=== PATIENT | male | born 1955 | race Caucasian/White ===

== ENCOUNTER 2020-10-30 14:50 | Inpatient (IN) | payer OTHER, MEDICAID ==
[~2020-10-30] VITALS: Ht 175.3 cm; Wt 93.4 kg
--- NOTE | 2020-10-31 04:16 | NUR ---
Assumed care of patient this pm shift. Patient came from home and was seen in the emergency room. Patient arrived in a wheel chair. Patient is hyperverbal and very manic upon arrival. Patient has a flight of ideas. Patient refused to sign consents so consent was obtained from the (KATE). Patient is very delusional and speaks alot about voice doubling mechanisms and the chantell. Patients vital signs are stable. No signs of acute distress. Patient also appears to have difficulty sleeping. Patient is alert and oriented to self. Patient is ambulatory and has a steady gait. We will continue to monitor per hospital policy.
[2020-10-31 07:00] VITALS: BP 119/78
[2020-10-31 11:38] VITALS: BP 119/78
[2020-10-31 12:55] LABS: HEMATOCRIT 42.9 % (42.0-52.0); HEMOGLOBIN 14.3 gm/dL (14.0-18.0); MCH 30.6 pg (26.0-34.0); MCHC 33.5 g/dL (28.0-37.0); MCV 91.4 fL (80.0-100.0); RBC 4.69 mil/uL (4.50-6.00); RDW 14.2 % (10.5-14.5); WBC 8.8 thou/uL (4.0-11.0)
[2020-10-31 13:06] LABS: CREATININE 0.7 mg/dL (0.7-1.3); MAGNESIUM 1.8 mg/dL (1.8-2.4); POTASSIUM 3.9 mmol/L (3.5-5.1)
[2020-10-31 13:07] LABS: CALCIUM 9.8 mg/dL (8.5-10.1)
--- NOTE | 2020-10-31 14:03 | NUR ---
1400 RESUMMED CARE THIS AM FROM OVERNIGHT SHIFT, PATIENT IN DAY ROOM TALKING LOUDLY VERY MANIC. PATIENT HAD TO GET GEODON 10 MG TO HELP PATIENT CALM DONE. PATIENT THEN ATE BREAKFAST TOOK MEDICATION WITHOUT INCIDENCE, PATIENT ORIENTED TIMES 4. PATIENT QUIETED DOWN AFTER IM PATIENT DENIES SI/HI/AH/VH AT PRESENT. PATIENTS ABDOMEN FIRM ROUND BOWEL SOUNDS PRESENT LUNGS CLEAR; PATIENT IS VERY INTELLIGENT GRADUATED [employer] FROM [employer]. PATIENT IS VERY GRANDIOUS AND HAS FLIGHT OF IDEAS AND JUMPS FROM ONE THOUGHT TO ANOTHER. 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 PATIENT IS MUCH CALMER THIS AFTERNOON WILL CONTINUE TO MONITOR FOR SAFETY AND BEHAVIORS.
--- NOTE | 2020-10-31 14:38 | NUR ---
SW attempted to complete assessment with the Pt. Pt was was unable to complete due to paranoia and good. Pt stated that this SW was from the government and felt threatened when SW inquired if Pt used a walker or cane to ambulate. SW attempted to contact the Pt's Esha Bloom, . Sw unable to reach Esha but left a message requesting for a call back and a copy of the DPOA paperwork to be faxed or emailed. VITALIY will continue to follow up
[2020-10-31 20:12] VITALS: BP 140/80
--- NOTE | 2020-10-31 23:55 | NUR ---
10-31-20 CARE TRANSFERRED 1899. PT AAOX4, VSS, RR EVEN AND NONLABORED ON RA, BLD GLUCOSE 159. PT DENIES SI/HI AND PAIN. PT PRESENTS IRRITABLE ABOUT BEING HERE ON A LOCK DOWN UNIT, BUT HAS REMAINED COOPERATIVE. PT HAS GRANDIOUS OF SELF WITH FLIGHT OF IDEAS, MOVING FROM ONE SUBJECT TO ANOTHER QUICKLY. DURING MEDICATION ADMIN PT HAD NO DIFFICULTIES. ZERO S/S OF ACUTE DISTRESS, PT WILL CONTIUE TO BE MONITOR PER [facility] PROTOCOL.
[2020-11-01 11:17] VITALS: BP 127/76
--- NOTE | 2020-11-01 11:42 | NUR ---
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 DID TAKE AM MEDICATIONS. GAIT STEADY WITHOUT ASSISTIVE DEVICES-NOTED TO HAVE MULTIPLE SUGAR PACKETS,CUPS,AND OTHER CONDIMENTS IN ROOM-APPEARS UNKEMPT-CLOTHING SOILED AND PANTS FALLING DOWN-WHEN DIRECTED TO SHOWER OR COMPLETE ADLS AND ASSISTANCE OFFERED REFUSED. APPETITE GOOD. PHYSICAL ASSESSMENT UNREMARKABLE.
[2020-11-01 19:55] VITALS: BP 145/97
--- NOTE | 2020-11-02 02:56 | NUR ---
11-01-20 CARE TRANSFERRED 1899 OBSERVED PT UP WALKING AND TALKING LOUDLY IN DAY ROOM.0 PT AAOX4, VSS, RR EVEN AND NONLABORED ON RA. PT PRESENTS MANIC HYPERVERBAL BUT EASILY REDIRECTED AND HAS BEEN COOPERATIVE THROUGHOUT NURSING ASSESSMENT. DURING MEDICATION ADMIN PT HAD NO DIFFICULTIES. PT WAS TALKING TO AND PT REQUESTED A CONSENT FOR TREATMENT, PT SIGNED CONSENT. LATER PT MANIC WAS MANAGED WITH PRN MEDICATION. ZERO S/S OF ACUTE DISTRESS NOTED, PT WILL CONTINUE TO BE MONITOR PER [facility] PROTOCOL.
[2020-11-02 07:47] VITALS: BP 156/79
[2020-11-02 10:14] VITALS: BP 156/79
[2020-11-02 10:26] VITALS: BP 156/79
--- NOTE | 2020-11-02 12:00 | NUR ---
1200 RESUMMED CARE FROM OVERNIGHT SHIFT THIS AM, PATIENT IN ROOM ASLEEP ROOM A MESS. SHEETS WERE OFF THE BED BED TURNED SIDE WAYS PAPER ALL OVER THE FLOOR. WE TOOK TISSUE BOXES AND EXTRA HYGIENE THINGS TAKEN OUT OF ROOM, PATIENT POURED COFFEE ON MATTRESS. PATIENT ORIENTED TIMES 3 DENIES SI/HI/AH/VH AT PRESENT. PATIENTS ABDOMEN FIRM ROUND BOWEL SOUNDS PRESENT LUNGS PRESENT. PATIENT IN DAYROOM EATING BREAKFAST TOOK MEDICATION WITHOUT INCIDENCE. PATIENT STARTED DISPLAYING MANIC BEHAVIORS TALKING LOUD WALKING IN AND OUT OF ROOM NOT BEING FULLY CLOTHED. PATIENT WAS GIVEN GEODON 10MG IM TO HELP MANIC BEHAVIORS. PATIENT IS DELUSIONAL AND HAS DISORGANIZED THOUGHTS WILL CONTINUE TO MONITOR PATIENT FOR BEHAVIORS AND SAFETY.
--- NOTE | 2020-11-02 13:33 | NUR ---
VITALIY and Dr. Garcia spoke with Esha who gave some hx about why pt was brought to hospital. Esha said that pt was dx with bipolar disorder at age of 20. She said several of pt's family members have been dx with COVID. She said he also has been stressed out about his upcoming court date in 02/2021. 3 years ago pt was out of control so pt's asked for the court to get involved. Pt destroyed property at the courtdebord and has therefore been working with the court system for 3 years. This was during a time she had to have brain surgery. VITALIY reviewed pt's paper chart and saw there was no DPOA. VITALIY relayed this to Esha who said that she signed one for pt many years ago. She became very emotional and began crying when she thought the hospital was going to release pt because of the DPOA doc. VITALIY and Dr. Garcia tried to explain that pt was too psychotic for this to be a safe discharge. VITALIY was unable to obtain much info for psychosocial; Esha was too emotional. VITALIY team will continue to follow pt during her stay on this unit.
[2020-11-02 19:39] VITALS: BP 135/76
--- NOTE | 2020-11-03 04:17 | NUR ---
11-02-20 CARE TRANSFERRED 1899 OBSERVED PT PACING IN HALLWAY. PT AAOX4, VSS, RR EVEN AND NONLABORED ON RA, PT PRESENTS IN MANIC STATE WITH FLIGHT OF IDEAS. HCP CONSULTED AND PRN MEDICATION ADMIN THEN NOTED PT CALMED DOWN FOR APPROXIMATELY ONE HOUR. ZERO S/S OF ACUTE DISTRESS, PT WILL CONTINUE TO BE MONITOR.
--- NOTE | 2020-11-03 09:14 | NUR ---
Care assumed of patient at 0715: Patient seated in dayroom at dining table at start of shift. Patient hyperverbal, pressured speech, disorganized thoughts. Alert and oriented x4. Paranoid regarding medications, discussing [place] batteries while taking [place] medication. Patient hid all pills under tongue and refused to swallow medications. Required multiple re-directions to swallow prescribed medications. Ate 100% breakfast. During rounds, patient had pushed underwear and several different linens into toilet, overflowing toilet. Blankets, sheets, towels pushed into sinks, bins and trash bags, all dripping wet. Denies pain and discomfort. Patient screaming in dayroom and was asked to sit in his room until he felt he could be more appropriate for mileau. Patient complied. Currently seated in room.
[2020-11-03 09:15] VITALS: BP 110/67
[2020-11-03 20:16] VITALS: BP 147/72
--- NOTE | 2020-11-04 04:11 | NUR ---
ASSUMED PT'S CARE THIS PM SHIFT. PT ALERT AND ORIENTED. WAS CALM AND COOPERATIVE WITH ASSESSMENT. PT CAME MANIC AND HYPERVERBAL AT ABOUT 2130. PT WAS ALSO DELUSIONAL. KEPT TALKING ABOUT CALLING HIS SHUTDOWN COORDINATOR THAT LATE AT NIGHT. PT INFORMED THAT IT WAS ALREAYD PAST TIME FOR PHONE CALLS. PT HAD FLIGHT OF IDEAS. KEPT TALKING ABOUT DIFFERENT THINGS THAT DID NOT MAKE SENSE. PT GIVEN 5M IM ZYPREXA. PT SLEPT AFTERWARDS. PT NOW AWAKE ACTING SAME WAY. HYPERVERBAL, DELUISONS. PT BROUGHT OUT HIS TABLE WITH PAPERS AND CUPS ,VOICED HE'S SETTING UP A BARGAIN IN THE DAYROOM. PT ASKED TO TAKE HIS TABLE BACK TO HIS ROOM AND TRY AND GET SOME SLEEP. PT TOOK TABLE BACK, BUT CAME BACK OUT, RAMBLING AND TALKING LOUD. ANOTHER ZYPREXA 5M IM GIVEN. PT STILL HYPERVERBAL, SITTING IN THE DAYROOM. PT WAS COOPERATIVE WITH MEDS. NO RESISTANCE TO CARE NOTED. WILL CONTINUE TO MONITOR.
--- NOTE | 2020-11-04 08:14 | NUR ---
Patient observed invading personal space of other patients during breakfast this morning- moving their breakfast trays to different tables, eating off of their plates, and using his hands to feed them as well. Patient was walked to his room where he was found to have a small pile of papers and toilet paper roll that was removed from his room.
[2020-11-04 09:17] VITALS: BP 117/75
--- NOTE | 2020-11-04 10:23 | NUR ---
PATIENT HAS BEEN UP, AND OUT ON THE UNIT, WANDERING, IMPULSIVE, LOUD, ATTEMPTING TO FEED PEERS THEIR BREAKFAST THIS MORNING, PATIENT REDIRECTED. HE VERBALLY AGGRESSIVE, THREATENING STAFF. PATIENT ESCORTED BACK TO ROOM BY STAFF, AFTER A WHILE, HE CALMED DOWN, AND CAME BACK OUT TO EAT HIS BREAKFAST. PATIENT TOOK ALL MORNING MEDICATION WHOLE WITHOUT DIFFICULTY. APPETITE IS GOOD, CONSUMED 75% BREAKFAST. PATIENT IS UNABLE TO PARTICIPATE IN GROUP THERAPY DUE TO LACK OF FOCUS, AND IMPULSIVE BEHAVIOR. NO AGGRESSIVE BEHAVIOUR AT THIS TIME. PATIENT'S CALLED AND STATES SHE USUALLY "CALM HIM DOWN BY TALKING TO HIM ON THE PHONE" PATIENT CURRENTLY TALKING TO HIS ON THE PHONE. NO SIGN OF ACUTE DISTRESS NOTED AT THIS TIME, WILL CONTINUE TO REDIRECT, AND MONITOR FOR SAFETY.
[2020-11-04 19:46] VITALS: BP 144/52
[2020-11-04 20:00] VITALS: BP 144/52
--- NOTE | 2020-11-05 04:41 | NUR ---
PATIENT WAS CALM THIS EVENING AND SAT IN DINING ROOM. HE SLEPT IN CHAIR IN DINING ROOM TONIGHT. HE AWOKE AROUND 0430 AND WAS TALKING ALOT AND WANDERING. EARLIER IN THE EVENING HE GOT AHOLD OF A PHONE AND STUCK IT DOWN HIS PANTS. PATIENT HAS BEEN LOCKED OUT OF ROOM MOST OF EVENING D/T HE PUTS SHEETS AND THINGS DOWN THE TOILET AND STOPS IT UP. NONE IN TOILET SO FAR TONIGHT. PATIENT DENIES PAIN AT THIS TIME. HE IS A/0X3 AND DELUSIONAL. HIS VSS. CONSTANT MONITORING TO ASSESS WHERE HE IS AT AND IF HE IS SAFE. PT SITTING IN CHAIR IN DINING ROOM QUIETLY AT THIS TIME. CONTINUE TO MONITOR. BECOMING LESS MANIC AND TAKING MEDS WITHOUT ISSUE.
[2020-11-05 09:13] VITALS: BP 122/74
--- NOTE | 2020-11-05 10:18 | NUR ---
VITALIY contacted pt's Esha to provide an update. No answer. VITALIY left [facility] [place].
--- NOTE | 2020-11-05 11:43 | NUR ---
RT Progress Note- Valeriano has been active in the milieu since admission. He however has been unable to participate in many recreation therapy groups d/t his manic and disruptive behaviors. Behaviors include talking over patients and human resources leader, walking in and out of group, over exaggerated body movements, drawing attention to himself. He is escorted to his room when he does this. He is provided only limited activity supplies because he has been stuffing the toilet with items this week. THROUGH OPERATOR will continue to encourage appropriate behavior in the milieu and in groups.
--- NOTE | 2020-11-05 15:09 | NUR ---
Alert and orientated X4. Becomes irritated and defensive when corrected. Calm for most of day but talks incessantly with alot of delusional speech. Denies SI/HI. Was cooperative with meds but then took out of mouth and needed encouragement to put them back in his mouth. Occassionally inappropriate approaching peers and staff with little response at attempts to redirect. Breath sounds clear. Reg HR auscultated. Color pink with brisk capillary refill and palpable peripheral pulses. Voiding independently, yellow urine per toilet. Active bowel sounds over soft, rounded abdomen. Ambulating with regular, steady gait. Participating in groups. Spoke with on phone this AM.
--- NOTE | 2020-11-05 15:58 | NUR ---
D/t patients ability to maintain appropriate behavior during recreation therapy group, patient was granted his request to use colored pencils to finish his worksheet in the day room. OVEN DAUBER later reported that patient had drawn a picture on the wall in his room. Upon MATCHER OPERATOR entering room, patient was seated on floor with no pants or briefs on. It was observed that he had drawn a large picture on his wall and wrote, "[place]." Patient was told that MATCHER OPERATOR would return with supplies for patient to wash the drawing off of the wall. When MATCHER OPERATOR returned, patient was using a soiled (BM) brief to wipe the drawing.
[2020-11-05 20:00] VITALS: BP 120/74
[2020-11-05 20:45] VITALS: BP 120/74
--- NOTE | 2020-11-06 03:00 | NUR ---
PATIENT HAS BEEN IN DINING ROOM MOST OF NIGHT. HE WAS LOCKED OUT OF ROOM AFTER TURNING ON HIS SHOWER IN HIS ROOM AND LETTING IT RUN. PATIENT HAS BEEN CALM TONIGHT BUT STILL HYPERVERBAL AT TIMES. HE TOOK HIS MEDS WITHOUT ISSUE. PATIENT AT 0245 LEFT DINING ROOM AND WENT AND URINATED IN THE HALLWAY OUTSIDE HIS ROOM. HE CAME TO NURSES STATION AND SAID HE NEEDED TO CLEAN UP SOME MILK AND CORNFLAKES IN THE HALLWAY. WHEN I ASKED HIM IF HE PEED IN THE HALLWAY HE JUST SHRUGGED HIS SHOULDERS. I TOLD HIM TO I COULD TELL IT WAS PEE AND HIS PANTS WERE WET TOO. HE GAVE SOME RESISTANCE TO GETTING CLEANED UP AND JUST WANTED TO WEAR HIS WET PANTS STATING THAT THEY WOULD DRY. PATIENT WAS CLEANED UP AND IS SLEEPING IN HIS BED . FREQUENT CHECKS ON HIS STATUS. IT WAS TOLD IN REPORT TODAY THAT THE DAY NURSE FOUND HIM USING COLORED PENCILS ON HIS WALL AND THEN SMEARING THE PICTURE WITH HIS FECES. PATIENT BEHAVIORS ARE THAT OF CHILD AGE. DIRECTIONS HAVE TO BE SHORT SIMPLE AND EXACT. PT DENIES PAIN,SI/HI/AVH. HE DID SPEAK WITH HIS BY PHONE EARLIER IN THE EVENING. HE DID NOT SHOW ANY BEHAVIORS WHILE OR AFTER HE SPOKE WITH UNTIL NOW. BED IN LOW POSITION. CONTINUING TO MONITOR.
[2020-11-06 08:00] VITALS: BP 144/80
[2020-11-06 09:59] VITALS: BP 144/80
--- NOTE | 2020-11-06 12:34 | NUR ---
Assess for length of stay. Admit to [facility] for bipolar with good. Hx diabetes. BG well controlled. Receives carb control diet and eating 100% of majority of meals. BMI 30, obesity, otherwise consider low nutrition risk
--- NOTE | 2020-11-06 13:22 | NUR ---
ASSUMED PATIENT CARE AT 0700, PATIENT WAS SITTING IN THE DAY ROOM. PATIENT WAS CAUGHT URINATING ON THE FLOOR IN FRONT OF HIS ROOM. PATIENT WAS UNCOOPERATIVE WITH HIS MORNING MEDICATION. FIRST HE TRIED TO HIDE HIS MEDICATION ON HIS PANTS, AFTER HE WAS ASKED NOT TO HIDE HIS MEDICATION IN HIS PANT, PATIENT THEN THREW HIS MEDICATION ON THE FLOOR. PATIENT PICKED UP HIS MEDICATION FROM THE FLOOR AND SWALLOWED THEM. PATIENT VITAL SIGNS ARE STABLE, HE WAS ALERT AND ORIENTED X4. PATIENT WAS IN THE DAY ROOM MOST OF THE DAY. PATIENT WAS CALM AND COOPERATIVE DURING MEALS AND HE ATE 100% OF BREAKFAST AND LUNCH. HIS BLOOD SUGAR WAS 143 FOR BREAKFAST AND 111 FOR LUNCH.
--- NOTE | 2020-11-06 15:50 | NUR ---
PT ALARM ABOVE DOOR ALARMING. PT FLOOR WET AND HIS PANTS WET. PT URINATED ON FLOOR AND TRACKED INTO ROOM.
--- NOTE | 2020-11-06 16:45 | NUR ---
PT TOOK MATTRESS OFF BED AND LAYING ON IT. HE WANTED THE NURSE TO CALL THE SECURITY AND HELP PUT HIS BED BACK ON THE BED. PT TALKING TO THIS VP REVENUE CYCLE ABOUT INDIANS AND ABOUT HIM BEING BLOOD FRIENDS AND HOLDING HIM DOWN AND CUT HIS LEFT FA, THERE IS A SCAR TO LEFT FA. TOLD PT TO COME OUT FOR DINNER, HE SAID NO.
--- NOTE | 2020-11-06 18:38 | NUR ---
DR. THOMASON STARTED NEW MED ZYPREXIA AND TO START WITH DINNER. HE HEARD NURSE TALKING ABOUT IT AND SAID THAT THAT GOES INTO YOUR CELLS AND DRAWS YOUR WATER OUT. HE ALSO HAS HIS LETTUCE IN A CUP OF WATER TO HELP. HE ALSO SPIT IN HIS JELLO CUP WITH JELLO AND MIXED TOGETHER AND ATE IT. HE SAID DOESN'T IT LOOK LIKE KNEE JOINT LIQUID. ZYPREXIA WAS PUT IN ICE CREAM CRUSHED, PT TOOK ICE CREAM WITH MIKO CRACKERS.
[2020-11-06 20:29] VITALS: BP 142/87
--- NOTE | 2020-11-07 02:28 | NUR ---
Assumed care of patient this pm shift. Vital signs stable. Patient cooperative and mostly redirectable. Affect blunted. Alert and oriented to self and situation. Takes medications whole with thin fluids. Patient is hyperverbal. Patient is delusional and seems to gravitate towards water in his rituals. Floor was covered in water this evening. Patient moved his bed to the floor. Assessment shows no signs of acute distress. Melyssa is present. We will continue to monitor per hospital policy.
[2020-11-07 05:29] LABS: HEMATOCRIT 44.9 % (42.0-52.0); HEMOGLOBIN 14.7 gm/dL (14.0-18.0); MCH 30.1 pg (26.0-34.0); MCHC 32.8 g/dL (28.0-37.0); MCV 91.7 fL (80.0-100.0); RBC 4.89 mil/uL (4.50-6.00); WBC 8.4 thou/uL (4.0-11.0)
[2020-11-07 05:49] LABS: CALCIUM 10.1 mg/dL (8.5-10.1); CREATININE 0.7 mg/dL (0.7-1.3); POTASSIUM 3.9 mmol/L (3.5-5.1); TOTAL BILIRUBIN 0.5 mg/dL (0.2-1.0); TOTAL PROTEIN 7.7 g/dL (6.4-8.2)
[2020-11-07 07:30] VITALS: BP 115/74
--- NOTE | 2020-11-07 07:56 | NUR ---
PT TALKING LOUDLY AND MAKING OTHER PATIENTS IN MILEU UPSET. PT TALKING ABOUT GUNS AND MAKING GUN SOUNDS. PT SEEMS WORSE IN BEHAVIOR. GAVE OLAZIPINE 10MG PO CRUSED MED AND PUT IN ORANGE JUICE. PT DRANK 100% OF OJ.
[2020-11-07 08:16] VITALS: BP 115/74
--- NOTE | 2020-11-07 08:17 | NUR ---
When SW came onto unit she could hear pt yelling and talking very loud. SW went to the front of the unit and observed pt rocking in his seat, and jumping up and sitting down several times while yelling; he appeared to be very maniac and hyperverbal. SW talked with his nursing staff about his behaviors and was told last night he took a wheel off a cart and put it in his pocket. SW observed pt get into another pt's space who was sitting in a mary chair; he appeared to be talking to the pt but also picking his sock off the floor. SW asked pt to sit down several times; he complied. SW reminded nursing staff that in meeting it was discussed if pt was doing unsafe behaviors he could have a prn shot. Nursing staff and VITALIY came up with a plan to administer his psych meds that dissolve to him; the plan is to dissolve it in ice cream since he appears to take meds better that way. It was reported to SW that nursing was able to administer meds in his orange juice. SW team will continue to follow pt during his stay on this unit.
--- NOTE | 2020-11-07 09:25 | NUR ---
GAVE PT MEDS THIS AM. PT TOOK MEDS WITHOUT ANY ISSUES. PT SEEMS CALMER AT THIS TIME.
--- NOTE | 2020-11-07 12:30 | NUR ---
PT TOOK OFF HIS SNAPS FROM BLUE PANTS AND PUT IN BEDSIDE TABLE TRAY. TRAY TAKEN OUT OF ROOM AND SNAPS WAS FOUND. PT ORGANIZED LUNCH TRAY ITEMS SUCH SUGAR PACKETS AND SALT, PEPPER PACKS HE WANTED A PENCIL AND WRITE ON A PAD OF PAPER. GAVE PT LITTLE PENCIL AND A COUPLE OF YELLOW STICKY NOTES AND A MENU PAPER. PT WAS WRITING ON MENU AND ALSO WHITE PAPER FROM MEAL TRAY. UNABLE TO UNDERSTAND WHAT HE WAS DRAWING OR WRITING. PT TALKING ABOUT [place] ALSO FOR WOMEN NEEDING IRON.
--- NOTE | 2020-11-07 17:14 | NUR ---
CRUSHED ZYPREXIA 10MG AND PUT IN ORANGE JUICE. PT ASKING FOR JUD TO EAT. PT STATED HE IS GETTING FULL, PT EATS 100% OF FOOD. PT SEEMS CALMER THIS EVENING. PT WAS SINGING MYRNA SONGS WITH OTHER PATIENTS TODAY.
[2020-11-07 20:15] VITALS: BP 142/82
--- NOTE | 2020-11-08 03:15 | NUR ---
11-07-20 CARE TRANSFERRED 1899 OBSERVED PT PACING HALLWAYS. PT AAOX4, VSS, RR EVEN AND NONLABORED ON RA. PT HAS FLIGHT OF IDEAS AND HYPRVERBAL AND HAS TROUBLE STANDING STILL. PT BLD GLUCOSE 181. PT DENIES SI/HI AND PAIN. DURING MEDICATION ADMIN PT SPIT OUT PILLS, PT IN MANIC PACING IN ROOM. PRN IM GIVEN AND NOTED LATER PT HAD CALMED DOWN. THEN PT STARTED SETTING OFF EMERGENCY ALARM, ONCE RESET, HE WOULD SET AGAIN, THIS OCCURRED MULTI TIMES. HCP CONTACTED AND Jolly ALDRICH NP GAVE ONETIME IM 10MG ZYPREXA. PT MANIC CONTINUED BUT LATER NOTED PT CALMED DOWN AND RESTING IN DAY ROOM GERICHAIR. ZERO S/S OF ACUTE DISTRESS, PT WILL CONTINUE TO BE MONITOR PER [facility] PROTOCOL.
[2020-11-08 09:17] VITALS: BP 116/64
[2020-11-08 09:18] VITALS: BP 116/64
--- NOTE | 2020-11-08 10:19 | NUR ---
UPON INITIAL ASSESSMENT AT 0715 NOTED TO BE INTRUSIVE-LOUD VOICE HYPERVERBAL-REFUSING TO FOLLOW DIRECTION FROM STAFF-ROOM UNLOCKED AND ASKED TO LAY ON MATTRESS-ATTEMPT SLOW DEEP BREATHS TO CONTROL RACING THOUGHTS-APPROX 10 MINUTES LATER OUT OF ROOM-NAKED IN HALLWAYS-INTRUSIVE WITH PEERS AND GRABBING ITEMS OFF OF STAFFS MEDICATION CART. AGAIN ATTEMPTED DECREASING STIMULUS IN ROOM BUT NOTED ON ROUNDS TO BE IN BATHROOM RUNNING WATER OR PUTTING THINGS IN TOILET-CLINICIAN CONTACTED AND ORDERS RECEIVED FOR 10MG IM GEODON-ATTEMPTED TO GIVE AM MEDS-INITALLY ATTEMPTED TO CHEEK THEM AND AFTER APPROX 15 MINUTES DID APPEAR TO SWALLOW THEM-CONVERSATION DISORGANIZED TANGENTIAL WITH MUCH GRANDIOSITY "I AM THE HEAD OF ALL THE CHEMICAL PLANTS"CONTINUES TO BE UNABLE TO FOLLOW VERBAL DIRECTION AND RUNNING WATER REPEATDLY IN ROOM-SECURITY CONTACTED TO MOVE TO SECLUSION ROOM WHERE HE WQOULD HAVE NO ACCESS TO BATHROOM UNTIL ABLE TO FOLLOW VERBAL COMMANDS-WHEN ASSISTEDUP FROM MATTRESS ON FLOOR NOTED TO HAVE WRITTEN IN BLACK MARKER ON FLOOR-FLOOR UNDER AND AROUND MATTRESS COATED WITH WHAT APPEARS TO BE SOAP. LAUGHING LOUDLY STATING "I MADE THAT WITH ALL MY CHEMICALS" ASSISTED TO SECLUSION ROOM -DOOR OPEN IN ATTEMPT TO DECREASE STIMULI-DOOR REMAINS UNLOCKED -PT INFORMED DOOR UNLOCKED-STAFF IN HALLWAY OUTSIDE DOOR UNTIL APPROX 1030 WHEN FELL ASLEEP . ON PHONE
--- NOTE | 2020-11-08 19:36 | NUR ---
ATIVAN 1MG GIVEN IM ALONG WITH THORAZINE 50MG IM AT 1345 FOR CONTINUED MANIC [id number] TO STAY IN ROOM OR SIT QUIETLY IN HALLWAY AND STAY OUT OF BATHROOM AND PEERS ROOMS-AND ENTERED BATHROOM IMMEDIATLY AFTER THIS CONVERSATION STARTED RUBBING HAND SOAP[ OVER FACE AND CHEST-ATTEMPTING TO RUB HAND SOAP ON NURSE-ENTERED MALE PEERS ROOM AND WAS STANDING OVER BED HOLDING A PAPER AIRPLANE AND MAKING AIRPLANE NOISES. AFTER APPROX 40 MINUTES OF COAXING DID COMPLETE ENTIRE AM LACTULOSE DOSE.RESTED FOR APPROX 30 MINUTES ON BED AFTER RECEIVING IM MEDICATIONS. ATE WELL FOR SUPPER AND TAKING LARGE AMOUNTS OF FLUIDS-WILL MONITOR AND LIMIT FLUID CONSUMPTION
[2020-11-08 20:13] VITALS: BP 137/74
--- NOTE | 2020-11-09 01:13 | NUR ---
11-08-20 CARE TRANSFERRED 1899 OBSERVED PT PACING IN DAY ROOM. PT AAOX4, VSS, RR EVEN AND NONLABORED ON RA, PT PRESENTS MANIC AND IS HYPERVERBAL WITH GRANDIOSE. PT DENIES SI/HI AND PAIN. DURING MEDICATION ADMIN PT APPEARED TO SWALLOW MEDICATION. LATER METAL MOULDER REPORTED PT WAS GETTING INTO DAY ROOM TRASH, METAL MOULDER MOVED TRASH. PT CONTINUES TO BE HYPERACTIVE. LATER NOTED PT SITTING IN CHAIR RESTING WITH EYES CLOSED, PT DENIES NEEDING TO GO TO BED. PT WAS ASSISTED INTO GERICHAIR BY METAL MOULDER AND COVERED WIH BLANKET. ZERO S/S OF ACUTE DISTRESS NOTED, PT WILL CONTINUE TO BE MONITOR PER [facility] PROTOCOL.
[2020-11-09 07:50] VITALS: BP 121/68
--- NOTE | 2020-11-09 07:54 | EKG ---
[address] [place] [address] ELECTROCARDIOGRAM REPORT Name: LUIS TRACY Room #: 517-A ADM IN M.R.#: [id number] Admission: 10/30/20 Attend Phys: Jason Garcia DO Discharge: Date of : 53 Report #: [id number] [facility] Test Date: 2020-11-02 Test Time: 14:44:45 Pat Name: LUIS TRACY Department: Room: 517 A Gender: M Photo Tech: Nhi JOLLY : 1955 Requested By: Jason Garcia Order Number: [id number] : Shiraz Alonzo Measurements Intervals Rumsey Rate: 86 P: 74 CT: 174 QRS: -31 QRSD: 145 T: 22 QT: 396 QTc: 474 Interpretive Statements Sinus rhythm Right bundle branch block No previous ECG available for comparison Electronically Signed On 11-02-2020 15:33:28 NEWS AGENT by Shiraz Alonzo [email or web address] <ELECTRONICALLY SIGNED> By: Shiraz Alonzo MD, [facility] 11/02/20 1533 1444 1444 Shiraz Alonzo MD, FACC /EPI
[2020-11-09 08:00] VITALS: BP 121/68
--- NOTE | 2020-11-09 08:34 | NUR ---
PT SITTING AT TABLE IN DINING ROOM. PT EATING WELL. PT ASKING ABOUT WHAT MEDS HE IS TAKING. PT DIDN'T WANT TO TAKE TRAJENTA DUE TO HIS SAYING IT HAS A ANTALIZED COATING AND ITS EXPENSIVE MED. HE ALSO ASKED WHAT THE YELLOW PILLS WAS FOR. PT FLIPPED PILLS OFF TABLE ONTO THE FLOOR. PT REFUSED LACTULOSE DUE TO WANTING ANOTHER AMONIA TEST FIRST. PT LUNGS CLEAR. PT BREATHED DEEP FOR THIS AIR TUCKER WITHOUT BEING ASKED. PT NOT TALKING LOUDLY THIS AM SOME DAYS. PT TOOK OTHER MEDS WITHOUT ANY ISSUES. PT STATED THAT THE LITHIUM HAS A BAD TASTE TO IT.
--- NOTE | 2020-11-09 13:20 | NUR ---
PT SAID LET ME SHOW YOU SOMETHING, WENT TO ROOM AND HE SYDNEY OF THE FLOOR WITH A BLACK MARKER IN SOMETHING WROTE BACKWORDS, HE ALSO HAS CHICKEN, BEEF, SUGAR, AND JELLY PACKS LINED UP IN A CERTAIN ORDER. PT STATED IT IS FOR HIS PAINTING. PT VERY ECCENTRIC. TALKED TO TODAY ON THE PHONE AND SHE WAS HAPPY HE HAD SLEEP LAST NIGHT. 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 PT HAS BEEN WALKING AROUND AND LOOKING INTO TRASH AND AND GETTING INTO THE FRIDGE. PT HAS TO BE REDIRECTED AWAY FROM THE FRIDGE AND TRASH.
--- NOTE | 2020-11-09 14:42 | NUR ---
PT ASKING THIS NAIL EXPERT ABOUT WANTING MARKERS FOR HIM TO MAKE A BEE HIVE. TOLD PT HE DIDN'T NEED MARKERS FOR THAT AND HE SYDNEY ON FLOOR AND HAS DRAWN ON TUBBS HERE.
--- NOTE | 2020-11-09 17:20 | NUR ---
PT FINISHED EATING DINNER. ASKED IF PT HAD ONE MILK WITH DINNER HE SAID YES AND ICE CREAM, THE AIDE SAID HE HAD 2 ALREADY. GAVE HIM ANOTHER MILK WITH CRUSHED OLANZIPINE IN THE MILK. PT WAS TUCKING HIS METFORMIN IN HIS ROLLED UP PANT LEGS. TOLD PT TO TAKE OUT PILLS FOR HIS SUGAR AND TAKE THEM, HE PUT HIS FINGER OUT FOR A ACCUCHECK, STATED HE ONLY GETS IT IN AM. HE STARTED TO TAKE MEDS WITH MILK.
--- NOTE | 2020-11-09 18:02 | NUR ---
PT AT THE DOOR AT NURSING AND WANTED A PAPER AND PENCIL. HE STATED THEY KEEP BORROWING THEM. GAVE PT A SHORT PENCIL WITH FIND A WORD, PT WANTED AN EARSER ALSO. STATED WE DIDN'T HAVE ANY. PT SAT AT TABLE AND WAS WORKING ON THE FIND A WORD PAPER.
[2020-11-09 20:04] VITALS: BP 114/63
--- NOTE | 2020-11-10 02:05 | NUR ---
11-09-20 CARE TRANSFERRED 1899 OBSERVED PT PACING IN HALLWAY AND DAY ROOM. PT AAOX4, VSS, RR EVEN AND NONLABORED ON RA. PT PRESENTS MANIC, HYPERVERBAL WITH FLIGHT OF IDEAS AND GRANDIOSE. PT DENIES SI/HI AND PAIN. DURING MEDICATION ADMIN PT HAD NO DIFFICULTIES. PT CONTINUES TO BE CREATIVE WITH MOISTURE CREAM AND OTHER ITEMS. PRN MEDICATION ADMIN AND PT CALMED FOR A SHORT TIME, THEN PT SET OFF DOOR ALARM AND OBSERVED PT LAUGHING NAKED IN PT ROOM. PASTRY SUPERVISOR PULLED LAST PRN AND ADMIN TO PT. LATER NOTED PT CALMED DOWN. ZERO S/S OF ACUTE DISTRESS NOTED, PT WILL CONTINUE TO BE MONITOR PER [facility] PROTOCOL.
[2020-11-10 06:30] LABS: HEMOGLOBIN 13.6 gm/dL (14.0-18.0); MCH 30.2 pg (26.0-34.0); MCHC 33.1 g/dL (28.0-37.0); MCV 91.2 fL (80.0-100.0); RBC 4.5 mil/uL (4.50-6.00); WBC 4.9 thou/uL (4.0-11.0)
[2020-11-10 06:42] LABS: ALBUMIN 3.4 g/dL (3.4-5.0); CALCIUM 9.5 mg/dL (8.5-10.1); CREATININE 0.7 mg/dL (0.7-1.3); POTASSIUM 3.6 mmol/L (3.5-5.1); TOTAL BILIRUBIN 0.5 mg/dL (0.2-1.0); TOTAL PROTEIN 6.3 g/dL (6.4-8.2)
[2020-11-10 08:25] VITALS: BP 128/64
--- NOTE | 2020-11-10 18:30 | NUR ---
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 CALLED UPDATE OM COVID STATUS PROVIDED. DENIES ANY PAIN AND ATE ALL OF HIS DINNER AND LUNCH TODAY. HE TOOK ALL HIS MEDICATION AND I PLACED THEM IN HIS MOUTH AND WATCHED HIM SWALLOW SO HE COULD NOT HIDE THEM HE DID TRY TO REMOVE THEM AT FIRST.
[2020-11-10 20:09] VITALS: BP 167/81
[2020-11-11 06:07] VITALS: BP 150/66
--- NOTE | 2020-11-11 06:43 | NUR ---
PT BEEN SLEEPING MOST OF THE NOC.CONTINUES TO BE PARANOID AND HAVING FLIGHT OF IDEAS PLUS HALLUCINATING WHILE SLEEPING.FOLLOWING COMMANDS WHEN PROMOTED.NO AGITATION OR IMPLULSIVE BEHAVIOR THIS SHIFT.COMPLAINT WITH CARE AND TOOK HIS MEDS W/O PROBLEMS.DENIES PAIN.VSS.AFEBRILE.NO CONCERNS REPORTED.
[2020-11-11 07:30] VITALS: BP 128/81
--- NOTE | 2020-11-11 19:02 | NUR ---
0815 ASSUMED CARE OF PATIENT, PATIENT NOTE AT SINK ALL WET AND DIGGING IN TRASH. PLASTIC SURGERY TECHNICIAN ASKS PATIENT NOT TO BE DIGGING IN TRASH AND PATIENT IS EASILY REDIRECTABLE. PATIENT IS CALM AND COOPERATIVE. TAKES MEDICATION WHOLE AND DOES SPIT MEDICATIONS OUT AND NEEDS ENCOURAGEMENT TO TAKE WITH WATER. PATIENT FIGITY AND UNABLE TO SIT STILL. PATIENT WAS FOUND BY STAFF MEMBER DIGGING IN SHARPS BOX AND RN FOUND NEEDLES IN CHAIR. PATIENT EATS 40 TO 60 % OF MEALS THEN PLAYS WITH FOOD. PATIENT FOUND PLAYING ON COMPUTER AND ASKED TO PLEASE NOT TOUCH. AMB WITHOUT DIFFICULTY, UNDRESSES SELF AND CONTINUES TO ATTEMPT TO LEAVE ROOM.
[2020-11-11 19:29] VITALS: BP 121/76
--- NOTE | 2020-11-12 02:31 | NUR ---
CARE ASSUMED 1900. PT ORIENTED TO SELF. RESTLESS WANTING TO TALK TO . PT SPOKE TO ON PHONE FOR ABOUT 30 MINUTES. EVENING VITALS STABLE NO FEVER. PT WAS CALM AND COOPEATIVE THROUGH THE NIGHT, EXCEPT ONE EPISODE WHERE PT GOT UP AND VOIDED ON THE FLOOR, AND REQUESTING PAPERS TO MAKE WRITE MYRNA CARDS. PT WAS EASILY REDIRECTED BACK TO BED. DENIES PAIN, CHEST DISCOMFORT . NO SOB. WILL CONTINUE TO MONITOR AND FOLLOW POC.
[2020-11-12 03:51] VITALS: BP 89/59
[2020-11-12 10:24] VITALS: BP 114/62
--- NOTE | 2020-11-12 13:53 | NUR ---
REMAINS HYPERVERBAL-SPEECH SLIGHTLY SLURRED -CONVERSATION RAMBLING AND NON-GOAL DIRECTED-BIZARRE BEHAVIORS BLOWING NOSE INTO HANDS AND HOLDING PHLEGM OUT TO NURSE "I KNOW YOU WANT TO TOUCH THIS" ATTEMPTING TO USE COMPUTER IN ROOM-LOUDLY LAUGHING WHEN ASKED TO QUIT EXPLAINING IT WAS FOR STAFF USE ONLY "I AM THE BOSS HERE-THE HEAD OF ALL OF THEM" AFEBRILE-NO COUGH NOTED OR REPORTED. O2 SAT 98 PERCENT ON RA-DENIES C/O PAIN STATING "I FEEL GREAT FANTASTIC BETTER THAN THAT" EUPHORIC. APPEARS TO TAKE MEDICATIONS PO-MOUTH CHEEK COMPLETED. DENIES PAIN. EATING 100 PERCENT OF MEALS.
--- NOTE | 2020-11-12 16:07 | NUR ---
INCREASED IRRITABILITY,AGITATION THIS PM-REFUSED 1699 SEROQUEL STATING "VE TAKEN THAT BEFORE AND IT IS NO GOOD FOR ME-IT MAKES ME SLUGGISH" INFORMED WE WERE TRYING TO MANAGE MANIC SYMPTOMS-HOWEVER CONTINUES TO REFUSE INSISTING THAT HE IS NOT MANIC AND DOES NOT NEED IT-HAS NEEDED FREQUENT REMINDERS THISPM TO NOT DIG THROUGH THE TRASH OR THE SOILED LINEN AT ONE POINT THIS PM WAS FOUND IN BATHROOM WITH HANDS IN TOILET STATING HE WAS "PREPARING A CULTURE" HAS FOOD AND BITS OF [place] THAT HE HAS TORN UP ON FLOOR OF ROOM.
[2020-11-12 20:16] VITALS: BP 146/99
--- NOTE | 2020-11-13 05:28 | NUR ---
PROGRESS PT STILL MANIC SLEPT FOR A SHORT PERIOD. PT HAVING GRANDIOSE THOUGHTS HE WANTS TO TAKE ALL THE BEDS FROM THE UNIT TO A BOYS/GIRLS FACILTY. DRESSED UP IN A BLUE PLASTIC LAUNDRY BAG A SKIRT, HID BEHIND DOOR TO HIS BATHROOM TO DO. WALKED OUT OF HIS ROOM A COUPLE OF TIMES BUT DID NOT GO NEAR THE EXIT. I THINK HE WAS ATTEMPTING TO LAY A JOKE ON US WITH HIS BLUE PLASTIC SKIRT. RE-ORIENTED TO SITUATION AND NEED TO STAY IN HIS ROOM HE WENT BACK IN WITH NO DIFICULTY.
[2020-11-13 08:03] VITALS: BP 149/76
[2020-11-13 10:39] VITALS: BP 149/76
--- NOTE | 2020-11-13 12:18 | NUR ---
1215 RESUMMED CARE FROM OVERNIGHT SHIFT THIS AM, PATIENT IN ROOM TALKING OUT LOUD TO SELF. PATIENT ATE BREAKFAST TOOK MEDICATION WITHOUT INCIDENCE. PATIENTS ABDOMEN SOFT ROUND BOWEL SOUNDS PRESENT LUNGS CLEAR; PATIENT VERY MANIC ALERT AND ORIENTED TIMES 3 PATIENT IS NAKED IN ROOM AND WE ASKED PATIENT TO NOT COME OUT OF ROOM. PATIENT AT TIMES IS LOUD AND TALKING TO SMEONE HE THINKS IS IN ROOM. PATIENT DENIES SI/HI/AH/VH AT PRESENT PATIENTS CALLED TO CHECK ON PATIENT.WILL CONTINUE TO MONITOR PATIENT FOR SAFETY AND BEHAVIORS.
[2020-11-13 20:09] VITALS: BP 130/67
--- NOTE | 2020-11-14 05:36 | NUR ---
Assumed care of patient at 1900. Pt up in chair earlier part of shift, writing and talking to self. Pt calm and cooperative with shift assessment and medications. Pt denied any pain. Pt lung sounds are diminshed throughout with wheezes heard upon auscultation of right upper and lower lobes and left upper lobe. Pt denies any discomfort or difficulty with breathing. Pt continues to have excessive, loud speech and is asking for gold glitter that he believes his Audelia has left here. Pt has been redirectable when he has attempted to come out of room into miranda without gown/clothing on. Pt assisted with getting clean gowns on without resistance. Pt redirected x 3 to remain in room without resistance. Pt had HS snack of kyler crackers and sugar free jello. Pt denies SI/HI. Continue to monitor patient for changes in behavior, safety.
[2020-11-14 07:58] VITALS: BP 131/77
[2020-11-14 10:22] VITALS: BP 131/77
--- NOTE | 2020-11-14 16:39 | NUR ---
1635 RESUMMED CARE FROM OVERNIGHT SHIFT THIS AM, PATIENT IN ROOM NAKED AND ASKED TO PUT GOWNS ON. PATIENT ALERT ORIENTED TIMES 4 DENIES SI/HI/AH/VH AT PRESENT. PATIENT WAS CALM AND MORE REDIRECTABLE THIS SHIFT ONLY ONE LOUD EPISODE OF LOUD TALKING TO SELF. PATIENTS ABDOMEN SOFT ROUND BOWEL SOUNDS PRESENT. LUNGS CLEAR PAIENT SLEPT OFF AND ON IN CHAIR I GOT SOME COLORING CRAYONS AND PAPER TO HELP OCCUPY PATIENT. PATIENT TAKES MEDICATION WITHOUT INCIDENCE WILL CONTINUE TO MONITOR PATIENT FOR SAFETY AND BEHAVIORS.
[2020-11-14 20:22] VITALS: BP 128/65
--- NOTE | 2020-11-15 05:05 | NUR ---
ASSUMED PT'S CARE THIS PM SHIFT. PT ALERT AND ORIENTED. PT WAS CALM AND COOPERATIVE WITH CARE. ASKED WHAT ALL HIS MEDS WERE BEFORE TAKING THEM. PT VOICED THAT HE DOES NOT THINK HE WOULD NEED TO KEEP TAKING THESE MEDS ONCE HE'S OUT OF THE HOSPITAL. PT EDUCATED ON IMPORTANCE OF CONTINUING HIS PYSCH MEDS IN ORDER NOT TO RELAPSE TO AVOID READMITTION. PT VOICED UNDERSTANDING OF EDUCATION. PT TALKED WITH ON THE PHONE BEGINNING OF SHIFT. PT SLEPT WELL THIS SHIFT. PT DID COME OF HIS ROOM ONETIME. REDIRECTED AND WENT BACK TO HIS ROOM WITHOUT HESITATION. EDUCATED ON IMPORTANCE OF STAYING IN ROOM AND KEEPING THE DOOR CLOSED DUE TO COVID-19 VIRUS. PT CURRENTLY AWAKE AND SITTING IN HIS ROOM. WILL CONTINUE TO MONITOR.
[2020-11-15 08:04] VITALS: BP 102/62
--- NOTE | 2020-11-15 08:12 | NUR ---
0700 ASSUMED CARE OF PATIENT, PATIENT SITTING IN CHAIR SLEEPING. PATIENT IS CALM AND COOPERATIVE. PATIENT DESCRIBING HES CREATION OF LEFT OVER USED FOOD PACKAGES OF HOMES AND IGLOO HE BUILT. PATIENT DELUSIONAL AND TALKATIVE. LUNG SOUNDS CLEAR, BS ACTIVE, NO C/O PAIN. MEDICATION TAKEN WHOLE WITHOUT DIFFICULTY. WILL CONTINUE TO OBSERVE
--- NOTE | 2020-11-15 18:48 | NUR ---
PATIENT COMES OUT OF ROOM, HIMS MANAGER ASKS PATIENT TO RETURN TO ROOM. PATIENT COMPLIANT AND STARTS DO DISCRIBE AN ORB AND HOW IT FUNCTIONS AND WHY ITS HERE. PATIENT STARTS TO LAUGH BUT QUIETLY SITS IN CHAIR.
[2020-11-15 20:05] VITALS: BP 128/85
--- NOTE | 2020-11-16 04:15 | NUR ---
Assumed care of patient this pm shift. Patient in good spirits, calm and redirectable. Patient is alert and oriented x4. Takes medicaitons whole with thin fluids. Watched for cheeking. Patient is ambulatory and not considered a falls risk. Steady gait. Continent of bowel and bladder. Covid positive. Assessment shows no signs of acute distress. Patient mostly sitting in his chair coloring and watching tv this evening. We will continue to monitor per hospital policy.
[2020-11-16 07:57] VITALS: BP 130/77
--- NOTE | 2020-11-16 13:21 | NUR ---
Followup: continues to eat 100% of meals. Wts are stable. BG controlled. Remains low nutrition risk
[2020-11-16 20:31] VITALS: BP 99/50
[2020-11-17 06:15] LABS: HEMATOCRIT 41.6 % (42.0-52.0); HEMOGLOBIN 13.7 gm/dL (14.0-18.0); MCH 29.9 pg (26.0-34.0); MCHC 32.9 g/dL (28.0-37.0); MCV 91.2 fL (80.0-100.0); RBC 4.56 mil/uL (4.50-6.00); RDW 14.4 % (10.5-14.5); WBC 6.8 thou/uL (4.0-11.0)
[2020-11-17 06:46] LABS: ALBUMIN 3.2 g/dL (3.4-5.0); CALCIUM 9.3 mg/dL (8.5-10.1); CREATININE 0.7 mg/dL (0.7-1.3); POTASSIUM 3.8 mmol/L (3.5-5.1); TOTAL BILIRUBIN 0.4 mg/dL (0.2-1.0); TOTAL PROTEIN 6.4 g/dL (6.4-8.2)
[2020-11-17 09:22] VITALS: BP 129/72
[2020-11-17 10:10] VITALS: BP 129/72
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
[2020-11-17 20:06] VITALS: BP 123/63
--- NOTE | 2020-11-18 05:42 | NUR ---
ASSUMED PT'S CARE THIS M SHIFT. ALERT AND ORIENTED. AMBULATES INDEPENDENTLY. MEDS GIVEN PER EMAR. PT SLEPT OFF AND ON. PT HAD AN EPISODE OF PYSCHOSIS IN THE MIDDLE OF THE NIGHT WHERE HE TOOK OFF HIS CLOTHES, DIPPED THEM IN THE TOILET AND WAS WASHING HIMSELF WITH IT. WET CLOTHES TAKEN FROM PT AND CLEAN DRIED CLOTHES PROVIDED. PT ALSO COMES OUT OF HIS ROOM TOWARDS NURSE'S STATION, PT COMPLAINT WHEN ASKED TO GO BACK TO HIS ROOM. WILL CONTINUE TO MONITOR.
[2020-11-18 07:40] VITALS: BP 123/75
--- NOTE | 2020-11-18 18:57 | NUR ---
Assumed patient care at 0700. patient was alert and oriented x4. Patient was cooperative with care and medication. Patient denies SI/HI.patient lung sound was clear upon auscultation. patient spoke to over the phone. patient ate all his meals and he also questioned every medication that was administered.
[2020-11-18 20:31] VITALS: BP 110/54
--- NOTE | 2020-11-19 06:23 | NUR ---
ASSUMED PT'S CARE THIS PM SHIFT. ALERT AND ORIENTED. PT WAS PLEASANT AND COOPERATIVE WITH CARE. PT TOOK MEDS PER EMAR. BUT PER HIS ROUTINE, ASKED WHAT EACH OF THEM WERE FOR BEFORE TAKING IT. PT VOICED THAT HE WOULD WANT TO STOP TAKING LITHIUM OR CUT THE DOSE IN HALF IT WAS CAUSING HIM TO HAVE URIANRY FREQUENCY AND URGENCY PT ENCOURAGED TO TALK TO THE DOCTOR ABOUT HIS CONCERNS WITH HIS LITHIUM. PT GIVEN A URINAL IF HE'S UNABLE TO MAKE IT TO THE BATHROOM. PT SLEPT LITTLE THIS SHIFT. AMBULATES INDEPENDENTLY. P WAS SOAKING UP TIOLET PAPER AND MOLDING AND MESSING WITH THEM. PT PUT THEM IN THE TRASH ONCE APPROACHED REGARDING IT. PT AMBULATES INDEPENDENTLY. WILL CONTINUE TO MONITOR.
[2020-11-19 08:54] VITALS: BP 135/64
--- NOTE | 2020-11-19 12:39 | NUR ---
OBSERVED TO BE RESTLESS IN ROOM MOVING FURNITURE AND BEDS,DOING JUMPING JACKS IN CORNER OF ROOM AT ONE POINT THIS AM FOUND IN SHOWER IN BATHROOM NAKED BUT WATER OFF AND HAD NEVER BEEN TURNED ON-STATES "I HAD TO URINATE-THERE IS URINE all OVER THE FLOOR AND IN HERE-IM NOT TAKING ANY MORE LITHIUM IT MAKES ME URINATE" NO COUGH,AFEBRILE-O2 SAT 99 PERCENT ON RA-CONVERSATION RAMBLING,CIRCUMSTANTIAL-GRANDIOSE -DYSPHORIC.
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
[2020-11-19 20:03] VITALS: BP 151/73
[2020-11-19 20:45] VITALS: BP 151/73
--- NOTE | 2020-11-19 22:47 | NUR ---
ASSUMED CARE OF PATIENT AT 1900. HE WAS RESTING IN BED AT THE TIME. HE AWOKE A LITTLE LATER. ASSESSMENT DONE. LCTA BILATERALLY. HE WAS HYPERVERBAL AND STILL DISTURBED ABOUT STAFF REMOVING OLD FOOD AND TRASH FROM HIS ROOM WHERE HE WAS RESEARCHING AND EXPERIMENTING THEORIES. HE TOLD THIS NURSE THAT THE "POLICE STAFF HERE IN THE HOSPITAL SHOULD BE DEMOTED IN RANK D/T THEM REMOVING HIS STUFF FROM HIS ROOM." HE SPOKE WITH HIS BY PHONE IN HIS ROOM TONIGHT. HE CONTINUED TO GET UPSET AND ROWLED UP ABOUT EVENTS EARLIER IN EVENING. LORAZEPAM 2MG GIVEN PO WITH HS MEDS. PATIENT HAS CALMED AND WENT TO BED AT 0. HE APPEARS TO BE RESTING IN BED. PATIENT DENIES PAIN, SI/HI/AVH. PATIENT REMAINS IN ISOLATION FOR COVID 19. TOMORROW IS DAY 10. HE IS ASYMPTOMATIC. AT 1930 HIS TEMPERTURE WAS 100 DEGREES. RETOOK TEMP AN HOUR LATER AFTER HE HAD BEEN OUT OF BED FOR AWHILE AND IT WAS 98 DEGREES. ROUTINE ROUNDS TO ASSESS SAFETY AND STATUS OF PATIENT.
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
[2020-11-20 08:00] VITALS: BP 131/63
[2020-11-20 10:20] VITALS: BP 131/63
[2020-11-20 19:23] VITALS: BP 130/68
--- NOTE | 2020-11-21 05:46 | NUR ---
Assumed care of pt @ 1900. Pt calm et cooperative this shift. Took medications whole without difficulty. Ambulates the halls ad chuyita with steady gait. VSWNL. Health assessment with no abnormalities noted at present time. Denies SI/HI/AVH at present time. Socialized with peers in dayroom until HS. Up several times throughout the noc. Talked with before HS. Currently sitting in dayroom watching tv. Will continue to monitor per unit protocol.
[2020-11-21 09:35] VITALS: BP 128/74
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
[2020-11-21 19:30] VITALS: BP 129/83
--- NOTE | 2020-11-22 05:09 | NUR ---
Assumed care of pt @ 1900. Pt calm et cooperative this shift. Took medications whole without difficulty. Ambulates the halls ad chuyita with steady gait. VSWNL. Health assessment with no abnormalities noted at present time. Denies SI/HI/AVH at present time. Socialized with peers in dayroom until HS. Currently resting in bed with eyes closed. Will continue to monitor per unit protocol.
[2020-11-22 08:01] VITALS: BP 131/86
[2020-11-22 09:24] VITALS: BP 151/86
--- NOTE | 2020-11-22 11:11 | NUR ---
1100 RESUMMED CARE FROM OVERNIGHT SHIFT THIS AM, PATIENT IN ROOM TALKING TO SELF. PATIENT REFUSED TO EAT BREAKFAST REFUSED HIS MEDICATION; PATIENTS ABDOMEN ROUND BOWEL SOUNDS PRESENT. PATIENTS LUNGS CLEAR PATIENT DENIES SI/HI/AH/VH AT PRESENT. PATIENT ORIENTED TIMES 3 PATIENT IS GRANDIOUS HAS FLIGHT OF IDEAS WHEN TALKING WITH YOU. PATIENT STATES HE IS GOING TO CALL HIS PERSONAL INVESTMENT ADVISER ON STAFF WHEN HE DOES NOT GET HIS WAY. WILL CONTINUE TO MONITOR PATIENT FOR SAFETY AND BEHAVIORS.
[2020-11-22 19:41] VITALS: BP 127/54
--- NOTE | 2020-11-23 03:40 | NUR ---
Assumed care of patient this pm shift. Patient in good spirits, calm and cooperative. Alert and oriented x4. Takes medications whole with thin fluids. Affect blunted. Ambulates without assistance. Patient is hyperverbal. Denies hi/si. Denies pain. Assessment shows no signs of acute distress. We will continue to monitor per hospital policy.
--- NOTE | 2020-11-23 07:55 | NUR ---
HYPERVERBAL,CIRCUMSTANTIAL-SPEECH IS LOUD AND PRESSURED-WILL FOLLOW DIRECTIONS FROM NURSING STAFF AFTER 2-3 TIMES REPEATING . DENIES C/O PAIN OR MEDICAL ISSUES STATING FEELS "FIT A FIDDLE" DENIES SI/HI/SH. EUPHORIC MOOD/AFFECT.GAIT STEADY WITHOUT ASSIST. CONTINUES TO QUESTIONS MEDICATIONS RECITING MULTIPLE POSSIBLE SIDE EFFECTS AND STATING HAS HAD ADVERSE REACTIONS TO "EVERYTHING USED FOR ALICE" "THE DOCTOR NEEDS TO UNDERSTAND MY BODY AND MIND FUNCTION BETTER AND FASTER THAN EVERYONE ELSE"
[2020-11-23 08:46] VITALS: BP 115/72
--- NOTE | 2020-11-23 11:38 | NUR ---
Nutrition followup: pt continues on [facility] unit eating 100% of most meals on Carb controlled diet. BG controlled. No weight taken since 11/14. Chart reviewed. Continue as low nutrition risk.
[2020-11-23 19:33] VITALS: BP 117/56
[2020-11-23 20:00] VITALS: BP 117/56
--- NOTE | 2020-11-24 05:10 | NUR ---
ASSUMED CARE OF PATIENT AT 1900 LAST EVENING. PATIENT WAS UP IN DAYROOM AND ASKED FOR PAPER TO WORK ON SOME PLANS HE HAD. HE SAT QUIETLY AND WROTE UP HIS PLANS AND SHARED WITH THIS NURSE. PATIENT REMAINS HYPERVERBAL A MAJORITY OF THE TIME. PATIENT DENIES PAIN, SI/HI/AVH. PATIENT TOOK HIS HS MEDS WHOLE WITH WATER AND THIS NURSE VERIFIED THAT THEY WERE SWALLOWED. PATIENT SLEPT OFF AND ON THRU THE NIGHT. HE HAS BEEN PLEASANT AND COOPERATIVE. NO NEGATIVE BEHAVIORS LAST NIGHT. PATIENT UP IN THE DAYROOM NOW TALKING WITH THE LAB LADY. PATIENT IS IN PLEASANT MOOD. CONTINUING ROUTINE ROUNDS TO ASSESS STATUS AND SAFETY OF PATIENT. CONTINUING TO MONITOR.
[2020-11-24 06:26] LABS: CREATININE 0.8 mg/dL (0.7-1.3); POTASSIUM 3.8 mmol/L (3.5-5.1)
[2020-11-24 06:27] LABS: CALCIUM 9.5 mg/dL (8.5-10.1)
[2020-11-24 09:11] VITALS: BP 110/53
[2020-11-24 11:33] VITALS: BP 110/53
--- NOTE | 2020-11-24 11:45 | NUR ---
ASSUMED CARE AT 0700 THIS MORNING. PT. UP, DRESSED IN HOSPITAL PANTS, SHIRT. HE CAME ONTO THE UNIT FOR BREAKFAST. HE ATE WELL. HE TOOK HIS MORNING MEDICATIONS WITHOUT PROBLEMS. AFTER BREAKFAST HE WENT AND LAYED DOWN UNTIL MORNING RT GROUP. HE DID PARTICIPATE IN THAT WITH MUCH ENCOURAGEMENT. HE GOT ON A TANGENT JUST BEFORE LUNCH ABOUT NOT WANTING TO BE A DNR AND THOUGHT IT WAS HORRIBLE OF FAMILIES WHO DO SUCH. HE WAS REDIRECTED FROM SAID BEHAVIORS. HE WAS PLEASANT AND COOPERATIVE WITH ALL CARE OTHERWISE.
[2020-11-24 19:30] VITALS: BP 128/73
--- NOTE | 2020-11-25 00:07 | NUR ---
PATIENT WAS UP IN DINING ROOM THIS EVENING VISITING WITH OTHERS BEFORE HE WENT TO BED AT 2200. HIS CALLED EARLIER IN THE EVENING AND PT HAD A LONG VISIT WITH HER. HE HAS BEEN CALM BUT HYPERVERBAL AROUND OTHERS, BUT PLEASANT. HE IS VERY CREATIVE WITH AN IMAGINATION THAT IS ACTIVE. PATIENT TOOK HIS HS MEDS AND HE DID NOT CHEEK THEM. HE STARTED HS SEROQUEL TONIGHT AND IS SLEEPING SOUNDLY AT THIS TIME. HE DENIES PAIN, SI/HI/AVH. ROUTINE ROUNDS TO ASSESS SAFETY AND STATUS OF PATIENT.
--- NOTE | 2020-11-25 06:52 | NUR ---
PATIENT SLEPT THRU NIGHT WITH 8.2 HOURS. PATIENT AWOKE ALERT AND WAS STAND BY ASSIST PATIENT ASKED FOR A SHOWER. HE TOOK HIS MEDS WHOLE WITH WATER AND NO CHEEKING. HE IS STILL HYPERVERBAL WHEN HE HAS SOMEONE TO LISTEN. PATIENT DRINKING WATER THIS MORNING. PATIENT'S MIND IS ALWAYS COMING UP WITH NEW IDEAS THAT HE IS EAGER TO SHARE. PATIENT SITTING IN DAYROOM NOW WATCHING TV QUIETLY. CONTINUING TO MONITOR.
[2020-11-25 08:48] VITALS: BP 116/51
--- NOTE | 2020-11-25 13:05 | NUR ---
AT DESK FREQUENTLY THIS AM WITH VARIOUS REQUESTS AND CONCERNS-CONVERSATION REMAINS CIRCUMSTANTIAL WITH SOME NOTED PARANOIA TOWARD STAFF-PREOCCUPIED WITH FINDING HIS "PAPERS" AND ACCUSING STAFF OF TAKING THEM "THOSE ARE NOT PUBLIC DOMAIN THEY ARE MY PROTOTYPES AND WHOEVER TOOK THEM WILL BE PROSECUTED" DID TAKE MEDICATIONS AND COMPLIENT WITH MD ORDER TO REMAIN OUT OF ROOM AFTER TAKING MEDS TO MONITOR FOR SPITTING OUT OR CHEEKING. DENIES PAIN. GAIT STEADY WITHOUT ASSISTIVE DEVICES. APPETTITE GOOD. NO COUGH.AFEBRILE. SOME MILD PEDAL EDEMA WHICH HE ATTRIBUTES TO LITHIUM-STATING "IT MAKES ME PEE TOO MUCH-THE DRUG COMPANIES AND DOCTORS ARE AWARE OF THE IMPLICATIONS"
--- NOTE | 2020-11-25 15:47 | NUR ---
VITALIY contacted Esha to do a check in and provide an update on the Pt. Esha stated she would like the Pt to return home when ready. Esha stated she talked to Dr. Angel about medication and checking Pt's levels. Esha wants the Pt to continue his outpt service with [facility] when discharged from [facility]. Esha had no other questions or concerns during this call. VITALIY will continue to follow.
[2020-11-25 19:23] VITALS: BP 134/68
--- NOTE | 2020-11-26 03:43 | NUR ---
Assumed care of patient this pm shift. Patient calm and cooperative sitting in the day room during assessment. Alert and oriented x3, takes meds whole, mouth checked for cheeking. Continent of bowel and bladder. Denies pain. Denies hi/si. Ambulates with a steady gait. Assessment shows no signs of acute distress. Affect variable. Hyperverbal. We will continue to monitor per hospital policy.
[2020-11-26 07:24] VITALS: BP 131/72
[2020-11-26 08:07] VITALS: BP 131/72
--- NOTE | 2020-11-26 08:07 | NUR ---
Assumed patient care at 0700.Patient was sitting in the dinning room. patient was co-operative with his medication and assessment. He was alert and oriented x3. During assessment patient was diverting from one topic to another.patient vital signs were stable, patient denies si/hi. patient participated in group activities. will continue to monitor patient.
[2020-11-26 19:16] VITALS: BP 131/69
--- NOTE | 2020-11-27 04:56 | NUR ---
Assumed care of pt @ 1900. Pt calm et cooperative this shift. Took medications whole without difficulty. Ambulates the halls ad chuyita with steady gait. VSWNL. Health assessment with no abnormalities at present time. Denies SI/HI/AVH at present time. Isolated in room most of shift. Currently resting in bed with eyes closed. Will continue to monitor per unit protocol.
[2020-11-27 09:19] VITALS: BP 107/65
--- NOTE | 2020-11-27 10:45 | NUR ---
RT Progress Note- Valeriano has shown consistent participation in both the milieu and recreation therapy groups this week. His hyperverbal and manic tendancies have improved in the group setting and he is accepting of most redirection. He does continue to offer a flight of ideas such as collecting specimens for experiments, contacting the [employer] for ideas, etc. Staff have only provided Valeriano with one writing tool at a time, which he must use in the day room under supervision and turn in when finished, due to his history of drawing on the abarca and floor of his room. He is compliant with this. FIELD CHECKER will continue to encourage improved behavior and provide him with group opportunities each day.
--- NOTE | 2020-11-27 11:55 | NUR ---
Alert and orientated X4, asking alot of questions about meds this AM. Sleeping in room when not at meals, drowsy. Denies SI/HI. Ambulates without difficulty. Breath sounds clear. Reg HR auscultated. Color pink with brisk capillary refill and palpable peripheral pulses. Independent with voiding. Active bowel sounds over large, rounded abdomen. States he had a BM early this AM. Currently sitting at table eating independently.
[2020-11-27 19:21] VITALS: BP 136/69
[2020-11-27 21:29] VITALS: BP 136/69
--- NOTE | 2020-11-28 04:21 | NUR ---
Assumed care for patient @ 1900. Pt affect is varible; hyperverbal @ times. Pt has been cooperative. Takes medications whole w/thin liquids; checked mouth for cheeking medications. Up in day room during assessment, then remained in room majority of night after HS snack. VS WNL; assessment completed w/ no acute signs of distress noted. Pt denies pain. Ambulates independently; up ad chuyita. Pt changed clothing this shift. Pt has been resting in bed with eyes closed and appears to have been sleeping throughout most of night. Pt has been continent this shift. Will continue to monitor per hospital policy for any changes in mood/behavior and safety.
[2020-11-28 06:12] LABS: HEMATOCRIT 43.9 % (42.0-52.0); HEMOGLOBIN 14.6 gm/dL (14.0-18.0); MCH 30.4 pg (26.0-34.0); MCHC 33.3 g/dL (28.0-37.0); MCV 91.3 fL (80.0-100.0); RBC 4.81 mil/uL (4.50-6.00); RDW 14.7 % (10.5-14.5)
[2020-11-28 08:12] VITALS: BP 126/71
[2020-11-28 09:04] VITALS: BP 126/71
--- NOTE | 2020-11-28 10:24 | NUR ---
1025 RESUMMED CARE FROM OVERNIGHT SHIFT THIS AM, PATIENT IN ROOM QUIET. PATIENT ALERT ORIENTED DENIES SI/HI/AH/VH AT PRESENT, PATIENTS ABDOMEN SOFT ROUND BOWEL SOUNDS PRESENT. PATIENTS LUNGS CLEAR PATIENT IS HYPERVERBAL AT TIMES. PATIENT PARTICIPATED IN GROUPS AND GOES TO HIS ROOM AND TAKES NAPS. WILL CONTINUE TO MONITOR PATIENT FOR SAFETY AND BEHAVIORS.
[2020-11-28 19:33] VITALS: BP 161/88
--- NOTE | 2020-11-29 05:06 | NUR ---
Assumed care of pt @ 1900. Pt calm et cooperative this shift. Took medications whole without difficulty. Ambulates the halls ad chuyita with steady gait. VSWNL. health assessment with no abnormalities noted at present time. Denies SI/HI/AVH at present time. Socialized with peers in dayroom until HS. Currently resting in bed with eyes closed. Will continue to monitor per unit protocol.
[2020-11-29 07:00] VITALS: BP 135/79
[2020-11-29 08:56] VITALS: BP 135/79
--- NOTE | 2020-11-29 10:25 | NUR ---
1020 RESUMMED CARE FROM OVERNIGHT SHIFT THIS AM, PATIENT ORIENTED TIMES 3 LESS MANIC. PATIENT DENIES SI/HI/AH/VH AT PRESENT PATIENT INTERACTIVE WITH SOME PATIENTS. PATIENTS ABDOMEN SOFT ROUND BOWEL SOUNDS PRESENT LUNGS CLEAR PATIENT MORE REDIRECTABLE. WILL CONTINUE TO MONITOR PATIENT FOR SAFETY AND BEHAVIORS.
[2020-11-29 20:00] VITALS: BP 141/79
--- NOTE | 2020-11-30 02:01 | NUR ---
ASSUMED CARE OF PATIENT AT 190. PATIENT WAS IN HIS ROOM AT THAT TIME LAYING DOWN AND RESTING IN BED. HIS VITAL SIGNS WERE WNL. HIS TEMP WAS 99.0 DEGREES. PATIENT DENIES PAIN OR DISCOMFORT. PT HAD BEEN COVERED IN BED. PATIENT CAME OUT TO DINING ROOM AROUND 1929 FOR HS SNACK AND BACK TO HIS ROOM AT 2029. HE SAT QUIETLY AT A TABLE FOR HIS SNACK. HE STILL IS HYPERVERBAL WHEN HE HAS SOMEONE AVAILABLE TO TALK. PATIENT HAS BEEN PLEASANT AND COOPERATIVE. HE HAD 2 LARGE BMS TONIGHT AND DID TAKE A TOWEL AND WASHCLOTH AND CLEANED HIMSELF ON HIS OWN INITIATIVE. PATIENT TOOK HIS MEDS WHOLE WITH WATER. HE DID NOT CHEEK MEDS THAT I COULD TELL. PATIENT IS SLEEPING IN HIS ROOM IN THE NUDE TONIGHT. HE HAS BEEN IN BED WITH EYES CLOSED SINCE 2129. ROUTINE ROUNDS TO ASSESS SAFETY AND STATUS OF PATIENT.
[2020-11-30 07:52] VITALS: BP 133/66
--- NOTE | 2020-11-30 10:08 | NUR ---
Nutrition followup: pt continues to eat 100% of meals and snacks on carb controlled diet. BG continues to be controlled. New weight obtained and weights have been stable. Low nutrition risk.
--- NOTE | 2020-11-30 14:23 | NUR ---
HAS BEEN VISIBLE IN DAYROOM WITH PEERS MAJORITY OF SHIFT, SPEECH SLIGHTLY SLURRED AND REPORTS FEELING"SLEEPY AND DRUGGED" AFTER TAKING AM MEDICATIONS. VS WNL BAKERY HELPER ARE EQAL BILATERALY. FADY. GAIT REMANINS SLOW AND STEADY. DID ATTEND GROUPS AND PER REPORT ABLE TO PARTICIPATE WITHOUT SIGNIFICSNT DISRUPTION
[2020-11-30 19:28] VITALS: BP 129/70
--- NOTE | 2020-12-01 02:53 | NUR ---
Assumed care of patient this pm shift. Patient in good spirits, calm and cooperative. Alert and oriented x3. Takes medications whole with thin liquids. Ambulates without assistance. Continent of bowel and bladder. Denies pain. Denies hi/si. Assessment shows no signs of acute distress. We will continue to monitor per hospital policy.
[2020-12-01 09:16] VITALS: BP 133/74
--- NOTE | 2020-12-01 10:18 | NUR ---
VITALIY contacted Esha concerning Pt's discharge. VITALIY informed of possible d/c on 12/03/20. Esha expressed excitement and stated she would be able to pick the Pt up. Esha informed that she has talked to the Pt about his medication and they have come up with a check list method to ensure Pt takes meds. VITALIY talked to Esha about case management services for the Pt and its benefits. Esha informed they are hesitant with case management due to having some bad expierences with a few CM's. VITALIY also mentions to Esha the importance of making sure Pt swallows the medication. Due to Pt cheecking his meds Esha will need to stay with the Pt at least 20 mins after taking meds to ensure Pt does not spit out. Esha stated she would be able to do this with the Pt. VITALIY suggested home health services to assist with medication managment. Esha seemed open to the suggestion. Esha had not questions or concerns. Pt will d/c 12/03/20 @ 2pm. Esha will transport.
--- NOTE | 2020-12-01 10:34 | NUR ---
SW contacted [facility] to obtain follow up appts for the Pt. Pschiatry: Dr. Larry- 12/08/20 @ 11:15 am Psychologist: Jimmy Sandoval- 12/17/20 @ 12pm
--- NOTE | 2020-12-01 10:58 | NUR ---
SPEECH NOT RAPID TODAY-CONVERSATION PREDOMINATLY RELEVENT AND GOAL DIRECTED. ATTENDED GROUP THIS AM BUT LITTLE PARTICIPATION D/T SOMULENCE. IS NOTED TO BE MILDLY SEDATED AFTER ADMINISTRATION OF AM MEDS-SPEECH SLURRED AND SLOWED. GAIT REMAINS STEADY WITHOUT ASSISITVE DEVICES-FOLLOWS VERBAL COMMANDS FROM NURSING STAFF. DENIES C/O PAIN/DISCOMFORT.
[2020-12-01 19:27] VITALS: BP 137/75
[2020-12-01 20:00] VITALS: BP 137/75
--- NOTE | 2020-12-02 02:43 | NUR ---
PT CARE ASSUMED WITH PT IN BED .PT HAD CALL FOR FAMILY.PT TAKE MEDICATION WHOLE WITH NO ISSUES.PT REMAIN IN BED AND GOT UP TO GET WATER AND STEADY GAIT.PT APPEARED TO BE IN NO DISTRESS AT THIS POINT.WILL CONTINUE TO MONITOR
[2020-12-02 09:19] VITALS: BP 103/79
--- NOTE | 2020-12-02 13:24 | NUR ---
PATIENT HAS BEEN UP, AND OUT ON THE UNIT, AMBULATES WITH STEADY GAIT. PATIENT TOOK ALL MEDICATION WHOLE WITHOUT DIFFICULTY, HE IS EATING MEALS, AND DRINKING FLUID WELL. PATIENT DENIES SUICIDAL IDEATION, DENIES DEPRESSION/ANXIETY, ABLE TO FOLLOW SIMPLE COMMAND. AFFECT IS FLAT/BLUNTED, MOOD IS CALM, COOPERATIVE WITH CARE. NO AGITATION OR AGGRESSIVE BEHAVIOR NOTED. PATIENT DENIES HAVING PHYSICAL PAIN. NO SIGN OF ACUTE DISTRESS NOTED AT THIS TIME, WILL MONITOR FOR SAFETY.
[2020-12-02] MEDS ORDERED: SEROQUEL 50 MG50 M1 PO (17:43)
[2020-12-02] MEDS ORDERED: LITHIUM CARBON600 MG PO (17:43)
[2020-12-02] MEDS ORDERED: TRADJENTA5 MG PO (17:43)
[2020-12-02] MEDS ORDERED: SEROQUEL200 MG PO (17:43)
[2020-12-02] MEDS ORDERED: TRAZODONE HCL100 MG PO (17:43)
[2020-12-02] MEDS ORDERED: OXCARBAZEPINE300 MG PO (17:43)
[2020-12-02] MEDS ORDERED: SYNTHROID50 MCG PO (17:43)
[2020-12-02] MEDS ORDERED: LANTUS SUBQ (17:43)
[2020-12-02] MEDS ORDERED: GLUCOPHAGE1000 MG PO (17:43)
[2020-12-02] MEDS ORDERED: LORAZEPAM 1 MG T1 MG PO (17:43)
[2020-12-02 20:00] VITALS: BP 103/42
[2020-12-02 20:02] VITALS: BP 103/42
--- NOTE | 2020-12-03 02:24 | NUR ---
PATIENT WAS LAYING IN BED WHEN I ASSUMED CARE OF HIM AT 190. PATIENT STATES HE WAS COLD SO HE WAS LAYING DOWN WITH 3 BLANKETS ON HIM TO WARM UP. HIS TEMP AT 1944 WAS 98.1. AT 2029 HE TOOK HIS PILLS WHOLE WITH WATER AND ASKED TO HAVE THE BLANKETS TAKEN OFF BECAUSE HE WASN'T COLD ANYMORE. HE HAD AUGUSTIN CRACKERS WITH PB FOR HS SNACK. HE IS A/0X1. HE STATES HE IS EXCITED AND READY TO RETURN HOME TOMORROW AND TO SEE HIS . PATIENT MORE TO HIMSELF TONIGHT. STILL TALKATIVE WHEN HE HAS AN AUDIENCE. PLEASANT AND COOPERATIVE. STEADY GAIT. NO BEHAVIORS. ROUTINE ROUNDS TO ASSESS SAFETY AND STATUS OF PATIENT. CONTINUING TO MONITOR. PATIENT APPEARS TO BE SLEEPING AT THIS TIME. DENIES SI/HI/AVH.
[2020-12-03 08:58] VITALS: BP 150/92
[2020-12-03 09:23] VITALS: BP 150/92
--- NOTE | 2020-12-03 10:39 | NUR ---
1030 RESUMMED CARE FROM OVERNIGHT SHIFT THIS AM, PATIENT IN ROOM QUIET. PATIENT CAME OUT ATE BREAKFAST TOOK MEDICATION WITHOUT INCIDENCE. PATIENT ORIETED TIMES 3 DENIES SI/HI/AH/VH AT PRESENT. PATIENTS ABDOMEN SOFT ROUND BOWEL SOUNDS PRESENT LUNS CLEAR. PATIENT IS TO DISCHARGE TO HOME TODAY WILL CONTIUE TO MONITOR PATIENT FOR SAFETY AND BEHAVIORS.
[2020-12-03 11:43] VITALS: BP 150/92
== END 2020-12-03 13:45 | disposition home or self-care (01) | DRG 885 ==
LOC: SBH → SICU 22:00 → SBH 22:13 → SICU 11-10 05:44 → SBH 11-20 17:15
PROVIDERS: Internal Medicine; Psychiatry & Neurology Psychiatry; ADMIT Psychiatry & Neurology Psychiatry; ATTEND Psychiatry & Neurology Psychiatry
DX: F31.2 Bipolar disorder, current episode manic severe with psychotic features (principal); U07.1 COVID-19; E11.9 Type 2 diabetes mellitus without complications; E03.9 Hypothyroidism, unspecified; Z88.8 Allergy status to other drugs, medicaments and biological substances; Z79.899 Other long term (current) drug therapy
CPT/HCPCS: 10880; 15002